=== PATIENT | female | born 1990 | race African-American/Black ===

== ENCOUNTER 2021-06-08 13:46 | Emergency (ER) | payer MEDICAID ==
[~2021-06-08] VITALS: Ht 162.6 cm; Wt 54.0 kg
[2021-06-08] MEDS ORDERED: PREN-55 MT (15:23)
[2021-06-08] MEDS ORDERED: CEPH500C2 MT (15:23)
[2021-06-08 15:30] VITALS: BP 141/69
== END 2021-06-08 15:31 | disposition home or self-care (01) ==
LOC: ER 13:46
DX: L53.9 Erythematous condition, unspecified (principal); Z59.00 Homelessness unspecified
CPT/HCPCS: 99282; 99283